=== PATIENT | male | born 1980 | race African-American/Black ===

== ENCOUNTER 2018-11-28 13:30 | Inpatient (IN) | payer BC ==
[~2018-11-28] VITALS: Ht 182.9 cm; Wt 99.7 kg
--- NOTE | ~2018-11-28 | EEG ---
[address] [address] EEG STUDY REPORT Name: MILA DODD Room: [address] IN .R.#: [id number] Admission: 11/28/18 Attend Phys: Andree Romo Discharge: Date of : 76 Report #: [id number] THIS REPORT FOR: //name// CC: RAINE physician/PCP Elías Live This patient is being evaluated for seizure. EEG was done by placing the electrodes by standard 10-20 system of electrode placement. Both referential and sequential montages were used for recording. Background activity in this patient's EEG is about 9 Hz and 30 microvolts. The patient went to sleep that is associated with bilaterally symmetrical sleep spindle and vertex sharp waves. Photic stimulation is unremarkable. Throughout the record, no active epileptiform activity was noticed. IMPRESSION: This patient's EEG is unremarkable and does not demonstrate any active epileptiform activity. By: [id number] Lugo MD /shelby
--- NOTE | ~2018-11-28 | CON ---
[facility] [address] [place] [address] CONSULTATION Name: JUMILAYORK Room: [address] IN M.R.#: [id number] Admission: 11/28/18 Attend Phys: Andree Romo Discharge: Date of : 76 Report #: [id number] THIS REPORT FOR: //name// CC: RANIE physician/PCP Elías Live DATE OF SERVICE: 11/29/2018 HISTORY OF PRESENT ILLNESS: This is a 38-year-old male patient who was evaluated by me for seizure. This patient has a history of severe asthma. He said he got up, he could not think he could breathe. There is some question whether he lost his pulse and he was found to be in SVT and he recovered from that. He was postictal, so it does look like this patient had a typical seizure. The patient never had any seizure before. REVIEW OF SYSTEMS: Indicate he is not complaining of any headache. He never had any seizures before. He has severe asthma. He is being admitted for respiratory difficulty. He does have trouble with anxiety, but rest of the 14-point review of system was carried out. It is mostly unremarkable. PAST MEDICAL HISTORY: Negative for any seizures. FAMILY HISTORY: Negative for seizure. SOCIAL HISTORY: He does not smoke. PHYSICAL EXAMINATION: Indicate he is alert, responsive, oriented. His speech, concentration, fund of knowledge and memory is at his baseline. Cranial nerve examination 2-12 is unremarkable. Strength, sensation, reflexes and tone is symmetrical. There is no meningeal sign. I could not look at the fundus. There is no cerebellar sign. Cardiac examination is unremarkable. He appeared to have stable respiratory system now. He is a very well-developed individual who does not have any dysmorphic features of eyes, ears and face. His blood pressure is 143/56, his pulse rate is 85. His temperature is 98.4. IMPRESSION: This patient appeared to have an induced seizure. It may have been induced because of the patient's respiratory problem or his cardiac problem. Neurological etiology appear unlikely but need to be excluded. RECOMMENDATIONS: 1. EEG. 2. CT scan of the head. 3. If they are okay, we will get a routine MRI, but emphasis should be to evaluate and treat the systemic etiology for [place] [address] CONSULTATION Name: MILA DODD Room: [address] IN .R.#: [id number] Admission: 11/28/18 Attend Phys: Andree Romo Discharge: Date of : 76 Report #: [id number] Thank you very much for this referral. By: [id number] Lugo MD /nt
[~2018-11-28 13:30] MED LIST: ADVAIR 100-501 EACH INH; ALBUTEROL2.5 MG/31 INH; AZITHROMYCIN 2250 MG PO; COMBIVENT INH; FLOVENT HFA 1110 MCG IH; LORAZEPAM 0.50.5 MG PO; MEDROLDOSEPACK PO; PREDNISONE 10 M10 M1 PO; PREDNISONE 20 M20 M1 PO; PREDNISONE 20 M20 MG PO; PROAIR HFA8.5 GM; PROVENTIL HFA6.7 G1 INH; SINGULAIR 10 MG10 M1 PO; TRAMADOL 50 MG50 MG PO
[2018-11-28 13:37] VITALS: BP 142/86
[2018-11-28 13:56] LABS: ABSOLUTE BASOPHILS 0.1 thou/uL (0.0-0.2); ABSOLUTE EOSINOPHILS 0.2 thou/uL (0.0-0.7); ABSOLUTE LYMPHOCYTES 1.4 thou/uL (0.8-5.3); ABSOLUTE MONOCYTES 0.4 thou/uL (0.0-1.2); ABSOLUTE NEUTROPHILS 3.2 thou/uL (1.6-8.1); BASOPHILS 1.4 %; EOSINOPHILS 3.6 %; HEMATOCRIT 43.6 % (42.0-52.0); HEMOGLOBIN 14.9 gm/dL (14.0-18.0); LYMPHOCYTES 25.8 %; MCH 29.7 pg (26.0-34.0); MCHC 34.1 g/dL (28.0-37.0); MCV 87.1 fL (80.0-100.0); MONOCYTES 8.5 %; MPV 8.5 fl. (7.2-11.1); NUCLEATED RBCS 0 /100WBC; PLATELET COUNT* 153 thou/uL (150-400); POLYS 60.7 %; RBC 5.01 mil/uL (4.50-6.00); RDW-CV 14.1 % (10.5-14.5); WBC 5.2 thou/uL (4.0-11.0)
[2018-11-28 14:01] LABS: ANION GAP 8 mmol/L (7-16); BUN 13 mg/dL (7-18); CALCIUM 8.7 mg/dL (8.5-10.1); CHLORIDE 104 mmol/L (98-107); CO2 31 mmol/L (21-32); CREATININE 1.3 mg/dL (0.6-1.3); GLUCOSE 91 mg/dL (70-99); POTASSIUM 3.3 mmol/L (3.5-5.1); SODIUM 143 mmol/L (136-145)
[2018-11-28 14:09] LABS: ALBUMIN 3.9 g/dL (3.4-5.0); ALKALINE PHOSPHATASE 62 U/L (46-116); SGOT 19 U/L (15-37); SGPT 34 U/L (30-65); TOTAL BILIRUBIN 0.3 mg/dL (<0.1-1.0); TOTAL PROTEIN 7.5 g/dL (6.4-8.2); TROPONIN-I LEVEL <0.06 ng/mL (<0.06)
[2018-11-28 16:27] VITALS: BP 111/78
[2018-11-28 16:40] VITALS: BP 136/79
--- NOTE | 2018-11-28 17:38 | NUR ---
PATIENT CAME TO THE FLOOR FROM THE ER IN STABLE CONDITION VIA CART. VITAL SIGNS STABLE ON 3 LITERS OF OXYGEN SATURATION AT 100%. PATIENT IS ANXIOUS AT THIS TIME. ROOM ORIENTATION AND ADMISSION ASSESSMENT DONE, QUESTIONS ANSWERED FOR PATIENT. CALL LIGHT IS IN REACH, WILL CONTINUE TO MONITOR.
[2018-11-29 00:31] VITALS: BP 117/56
[2018-11-29 04:06] LABS: HEMATOCRIT 38.6 % (42.0-52.0); MCH 29.7 pg (26.0-34.0); MCHC 33.8 g/dL (28.0-37.0); MCV 87.9 fL (80.0-100.0); MPV 9.1 fl. (7.2-11.1); NUCLEATED RBCS 0 /100WBC; PLATELET COUNT* 148 thou/uL (150-400); WBC 6.5 thou/uL (4.0-11.0)
[2018-11-29 04:27] LABS: CALCIUM 8.2 mg/dL (8.5-10.1); CREATININE 1.2 mg/dL (0.6-1.3)
[2018-11-29 04:28] LABS: POTASSIUM 4.5 mmol/L (3.5-5.1)
[2018-11-29 05:32] LABS: ABSOLUTE LYMPHOCYTES 0.6 thou/uL (0.8-5.3); ABSOLUTE MONOCYTES 0.1 thou/uL (0.0-1.2); ABSOLUTE NEUTROPHILS 5.8 thou/uL (1.6-8.1)
[2018-11-29 05:33] LABS: LARGE PLATELETS RARE; PLATELET ESTIMATE DECREASED
--- NOTE | 2018-11-29 07:37 | NUR ---
PT SLEPT WELL AFTER MIDNIGHT. RECEIVED IV BOLUS ORDERED, AM LABS DRAWN. RFA SL. ROOM AIR SAT 95%. RT TX GIVEN ORDERED. RECEIVED PO ATIVAN X1 AT HS WITH GOOD RESULT. UP AMBULATING IN [place] AT HS. AOX4, ABLE TO USE CALL LITE AND MAKE NEEDS KNOWN.
[2018-11-29 09:00] VITALS: BP 143/56
--- NOTE | 2018-11-29 12:41 | EKG ---
[place] [address] ELECTROCARDIOGRAM REPORT Name: MILA DODD Room: [address] ADM IN .R.#: [id number] Admission: 11/28/18 Attend Phys: Andree Romo Discharge: Date of : 76 Report #: [id number] THIS REPORT FOR: //name// [facility] ED Test Date: 2018-11-28 Test Time: 13:41:50 Pat Name: MILA DODD Department: Room: [facility] Gender: M Section Hand Helper: Harrison LANDEROS : 1980 Requested By: Efrain Munroe Order Number: [id number] MD: Da Cerda Measurements Intervals [place] Rate: 107 P: 85 FL: 148 QRS: 93 QRSD: 87 T: -2 QT: 317 QTc: 423 Interpretive Statements Sinus tachycardia Borderline right axis deviation ST elev, probable normal early repol pattern No previous ECG available for comparison Electronically Signed On 11-29-2018 12:41:12 FILES SUPERVISOR by Da Cerda [email or web address] <ELECTRONICALLY SIGNED> By: Da Cerda MD, [facility] 11/29/18 1241 1341 40 Da Cerda MD, FAC /EPI
[2018-11-29 15:30] VITALS: BP 140/110
[2018-11-29 15:42] VITALS: BP 139/70
[2018-11-29 16:00] VITALS: BP 122/73
[2018-11-29 16:04] LABS: ABSOLUTE MONOCYTES 0.9 thou/uL (0.0-1.2); ABSOLUTE NEUTROPHILS 15.7 thou/uL (1.6-8.1); BASOPHILS 0.2 %; EOSINOPHILS 0.1 %; HEMATOCRIT 42.6 % (42.0-52.0); HEMOGLOBIN 14.2 gm/dL (14.0-18.0); LYMPHOCYTES 15.2 %; MCHC 33.3 g/dL (28.0-37.0); MCV 90.3 fL (80.0-100.0); MONOCYTES 4.3 %; MPV 9.1 fl. (7.2-11.1); NUCLEATED RBCS 0 /100WBC; PLATELET COUNT* 202 thou/uL (150-400); POLYS 80.2 %; RBC 4.72 mil/uL (4.50-6.00); RDW-CV 13.9 % (10.5-14.5); WBC 19.6 thou/uL (4.0-11.0)
--- NOTE | 2018-11-29 16:15 | NUR ---
1520-PATIENT CALLED FOR RN, UPON ENTERING PATIENT STRUGGLING TO BREATHE SITTING ON SIDE OF BED. ATTEMPTED TO PLACE O2 ON PATIENT PATIENT STARTED TO LEAN BACK ON FOOT OF BED. HAND WASHER CALLED AT 1522. RN CALLED FOR HELP AND PATIENT BEGAN TO HAVE SEIZURE LIKE ACTIVITY. ASSISTED PATIENT ONTO LEFT SIDE AND PATIENT APPEARED TO BE UNRESPONSIVE. PATIENT LOST CONTROL OF BOWEL AND URINE AT THIS. CODE BLUE ACTIVATED. 1525-CODE TEAM ARRIVED. SEE CODE BLUE FLOWSHEET FOR DOCUMENTATION OF VS AND MEDS ADMINISTERED. 1536- PATIENT STARTING TO WAKE UP AT THIS TIME. ABLE TO ANSWER ORIENTATION QUESTIONS. 1553-MANAGER TRANSPORT PLACED AND TRACING ST. PATIENT MORE AWAKE AT THIS TIME. VITALS TAKEN, SEE DOCUMENTATED INTERVENTION. 1615-UPDATED PATIENT'S ON PHONE AND NEW ORDERS. PATIENT TO HAVE CTA OF CHEST COMPLETED. SEIZURE PRECAUTIONS NOW IN PLACE. WILL CONTINUE WITH PLAN OF CARE.
[2018-11-29 16:25] LABS: ALBUMIN 3.8 g/dL (3.4-5.0); ALKALINE PHOSPHATASE 67 U/L (46-116); ANION GAP 18 mmol/L (7-16); BUN 13 mg/dL (7-18); CALCIUM 8.7 mg/dL (8.5-10.1); CHLORIDE 103 mmol/L (98-107); CO2 21 mmol/L (21-32); CREATININE 1.6 mg/dL (0.6-1.3); GLUCOSE 188 mg/dL (70-99); MAGNESIUM 2.2 mg/dL (1.8-2.4); POTASSIUM 3.9 mmol/L (3.5-5.1); SGOT 28 U/L (15-37); SGPT 35 U/L (30-65); SODIUM 142 mmol/L (136-145); TOTAL BILIRUBIN 0.2 mg/dL (<0.1-1.0); TOTAL PROTEIN 7.2 g/dL (6.4-8.2); TROPONIN-I LEVEL <0.06 ng/mL (<0.06)
--- NOTE | 2018-11-29 19:46 | NUR ---
PATIENT HAS BEEN A/O X 4 SINCE HAVING EPISODE THIS AFTERNOON. PATIENT TRACING NSR ON ADMINISTRATIVE AIDE. PATIENT HAS DENIED PAIN, STATES HAVING SOME SORENESS TO CHEST FROM COMPRESSIONS. CTA OF CHEST NEGATIVE. IV RESTARTED THIS SHIFT, NS INFUSING. GIVEN 1ST DOSE OF KEPPRA IV THIS AFTEROON. SEEN BY NEURO THIS SHIFT. UPDATED ON ALL NEW ORDERS AND PLAN OF CARE. SEIZURE PRECAUTIONS IN PLACE. HOULRY ROUNDING COMPLETED. CALL LIGHT WITHIN REACH. WILL CONTINUE WITH PLAN OF CARE.
[2018-11-29 20:30] VITALS: BP 113/67
[2018-11-30 00:17] VITALS: BP 114/75
[2018-11-30 04:34] VITALS: BP 113/46
[2018-11-30 05:19] LABS: HEMATOCRIT 37.2 % (42.0-52.0); HEMOGLOBIN 12.9 gm/dL (14.0-18.0); MCH 30.2 pg (26.0-34.0); MCHC 34.8 g/dL (28.0-37.0); MCV 86.8 fL (80.0-100.0); MPV 8.8 fl. (7.2-11.1); NUCLEATED RBCS 0 /100WBC; PLATELET COUNT* 146 thou/uL (150-400); RBC 4.29 mil/uL (4.50-6.00); WBC 13.3 thou/uL (4.0-11.0)
[2018-11-30 05:29] LABS: CALCIUM 8.7 mg/dL (8.5-10.1); CREATININE 1.2 mg/dL (0.6-1.3); POTASSIUM 4.2 mmol/L (3.5-5.1)
[2018-11-30 06:56] LABS: ABSOLUTE LYMPHOCYTES 0.8 thou/uL (0.8-5.3); ABSOLUTE MONOCYTES 0.8 thou/uL (0.0-1.2); ABSOLUTE NEUTROPHILS 11.7 thou/uL (1.6-8.1)
[2018-11-30 06:57] LABS: PLATELET ESTIMATE ADEQUATE
--- NOTE | 2018-11-30 07:01 | NUR ---
PT SLEPT FAIRLY WELL AFTER MIDNIGHT. NO SEIZURE ACTIVITY OVERNIGHT. TELE SR/ST WITH ACTIVITY. PRN LORAZEPAM GIVEN X1 WITH GOOD RESULT. FRIENDS AT BEDSIDE OVERNIGHT. O2 2L NC. AM LABS DRAWN. NEURO CHECKS WNL, PO KEPPRA AND IV SOLUMEDROL GIVEN ORDERED. SEIZURE PRECAUTIONS IN PLACE. LFA IVF INFUSING PER PUMP. ABLE TO USE CALL LITE AND MAKE NEEDS KNOWN.
[2018-11-30 08:10] VITALS: BP 118/73
--- NOTE | 2018-11-30 12:20 | EKG ---
[place] [address] ELECTROCARDIOGRAM REPORT Name: MILA DODD Room: [address] ADM IN M.R.#: [id number] Admission: 11/28/18 Attend Phys: Andree Romo Discharge: Date of : 76 Report #: [id number] THIS REPORT FOR: //name// [facility] Test Date: 2018-11-29 Test Time: 15:44:06 Pat Name: MILA DODD Department: Room: [address] Gender: M Shucker: BRI : 1980 Requested By: Efrain Munroe Order Number: [id number] Reading MD: Da Cerda Measurements Intervals [place] Rate: 119 P: 68 [place]: 153 QRS: 95 QRSD: 89 T: -68 QT: 334 QTc: 470 Interpretive Statements Sinus tachycardia Borderline right axis deviation Consider left ventricular hypertrophy Abnormal T, consider ischemia, inferior leads Baseline wander in lead(s) V3,V4,V5 Compared to ECG 11/28/2018 13:41:50 T-wave abnormality now present Possible ischemia now present Electronically Signed On 11-30-2018 12:20:20 VEHICLE DYNAMICS ENGINEER by Da Cerda [email or web address] <ELECTRONICALLY SIGNED> By: Da Cerda MD, [facility] 11/30/18 1220 1544 1544 Da Cerda MD, [facility] /EPI
--- NOTE | 2018-11-30 12:21 | EKG ---
[place] [address] ELECTROCARDIOGRAM REPORT Name: MILA DODD Room: [address] ADM IN M.R.#: [id number] Admission: 11/28/18 Attend Phys: Andree Romo Discharge: Date of : 76 Report #: [id number] THIS REPORT FOR: //name// [facility] Test Date: 2018-11-29 Test Time: 15:44:56 Pat Name: MILA DODD Department: Room: [address] Gender: M Ms Sql Server Developer: BRI : 1980 Requested By: Efrain Munroe Order Number: [id number] Razia MD: Da Cerda Measurements Intervals [place] Rate: 118 P: 65 [place]: 150 QRS: 96 QRSD: 88 T: -66 QT: 324 QTc: 455 Interpretive Statements Sinus tachycardia Borderline right axis deviation Repol abnrm suggests ischemia, inferior leads Baseline wander in lead(s) V1,V2 Electronically Signed On 11-30-2018 12:20:57 HAND COLLATOR by Da Cerda [email or web address] <ELECTRONICALLY SIGNED> By: Da Cerda MD, [facility] 11/30/18 1220 1544 1544 Da Cerda MD, [facility] /EPI
[2018-11-30 13:31] VITALS: BP 129/60
[2018-11-30 16:00] VITALS: BP 142/72
--- NOTE | 2018-11-30 19:31 | NUR ---
PATIENT HAS BEEN A/O X 4 THIS SHIFT. CONTINUES ON HELPER COORDINATOR, TRACING NSR. PATIENT UP AD COLETTE IN ROOM. HAS DENIED PAIN OR SHORTNESS OF AIR. IV FLUIDS CONTINUE TO INFUSE. CONTINUES ON IV SOLUMEDROL. NO SEIZURE ACTIVITY THIS SHIFT, REMAINS ON SEIZURE PRECAUTIONS. HAS BEEN AMBULATING IN HALLS THIS SHIFT. FAMILY AND FRIENDS AT BEDSIDE. TO HAVE ECHO IN AM. HOURLY ROUNDING COMPLETED. CALL LIGHT WITHIN REACH. WILL CONTINUE WITH PLAN OF CARE.
[2018-11-30 20:05] VITALS: BP 121/58
--- NOTE | 2018-12-01 05:48 | NUR ---
PATIENT SLEPT FOR MOST OF THE SHIFT, VOICED ANXIETY AROUND 2029 AND WAS GIVEN ATIVAN AND NASAL CANNULA WITH 2L WHILE SLEEPING. BED RAILS UP X2, BED IN LOWEST POSITION, CALL LIGHT WITHIN REACH, WILL CONTINUE TO MONITOR.
--- NOTE | 2018-12-01 06:45 | NUR ---
REVIEWED AND AGREE WITH CHARTING BY ELLIE TINEO
[2018-12-01 08:10] VITALS: BP 131/75
[2018-12-01 12:00] VITALS: BP 135/92
--- NOTE | 2018-12-01 13:10 | NUR ---
SW met with pt and pt to complete initial assessment, introduce self, and SW role. Pt alert, oriented, pleasant. Pt lives at home with his ( in 2005). Pt has a nebulizer and inhalor at home. Pt and pt think that there is a possibility that pt will dc with heart monitor but they are not certain yet. No known dc needs at this time. SW to continue to follow to assist with safe dc planning.
--- NOTE | 2018-12-01 13:31 | 2DMMODE ---
[place] [address] 2 D/M-MODE ECHOCARDIOGRAM Name: MILA DODD Room: [address] IN .R.#: [id number] Admission: 11/28/18 Attend Phys: Elías Live Discharge: Date of : 76 Date of Service: 12/01/18 1330 Report #: [id number] THIS REPORT FOR: //name// APPROVED REPORT Study performed: 12/01/2018 11:17:56 EXAM: Comprehensive 2D, Doppler, and color-flow Echocardiogram Patient Location: Bedside BSA: 2.21 HR: 83 bpm BP: 121/58 mmHg Other Information Study Quality: Good Indications Abnormal ECG 2D Dimensions IVSd: 10.14 (7-11mm) LVOT Diam: 22.29 (18-24mm) LVDd: 56.29 mm PWd: 10.86 (7-11mm) Ascending Ao: 29.97 (22-36mm) LVDs: 34.49 (25-40mm) Aortic Root: 30.87 mm Volumes Left Atrial Volume (Systole) LA ESV Index: 19.50 mL/m2 Aortic Valve AoV Peak Carlos.: 1.21 m/s AO Peak Gr.: 5.83 mmHg LVOT Max P.44 mmHg AO Mean Gr.: 3.16 mmHg LVOT Mean P.92 mmHg LVOT Max V: 1.05 m/s AO V2 VTI: 22.12 cm LVOT Mean V: 0.63 m/s JEFFERY (VTI): 3.47 cm2 LVOT V1 VTI: 19.65 cm Mitral Valve E/A Ratio: 1.70 MV Decel. Time: 215.48 ms MV E Max Carlos.: 0.93 m/s MV PHT: 62.49 ms MVA (PHT): 3.52 cm2 [place] [address] 2 D/M-MODE ECHOCARDIOGRAM Name: MILA DODD Room: [address] IN .R.#: [id number] Admission: 11/28/18 Attend Phys: Elías Live Discharge: Date of : 76 Date of Service: 12/01/18 1330 Report #: [id number] TDI E/Lateral E': 5.17 E/Medial E': 7.15 Medial E' Carlos.: 0.13 m/s Lateral E' Carlos.: 0.18 m/s Pulmonary Valve PV Peak Carlos.: 0.98 m/s PV Peak Gr.: 3.82 mmHg Tricuspid Valve RAP Estimate: 5.00 mmHg TR Peak Gr.: 25.69 mmHg RVSP: 30.69 mmHg PA Pressure: 30.69 mmHg Left Ventricle The left ventricle is normal size. There is normal LV segmental wall motion. There is normal left ventricular wall thickness. Left ventricular systolic function is normal. The left ventricular ejection fraction is within the normal range. LVEF is 60-65%. The left ventricular diastolic function is normal. Right Ventricle The right ventricle is normal size. The right ventricular systolic function is normal. Atria The left atrium size is normal. The right atrium size is normal. Aortic Valve The aortic valve is normal in structure. No aortic regurgitation is present. There is no aortic valvular stenosis. Mitral Valve The mitral valve is normal in structure. There is no mitral valve regurgitation noted. No evidence of mitral valve stenosis. Tricuspid Valve The tricuspid valve is normal in structure. Trace tricuspid regurgitation. Pulmonic Valve The pulmonary valve is normal in structure. There is no pulmonic valvular regurgitation[place] [address] 2 D/M-MODE ECHOCARDIOGRAM Name: JUMILAYORK Room: [address] IN [facility]#: [id number] Admission: 11/28/18 Attend Phys: Elías Live Discharge: Date of : 76 Date of Service: 12/01/18 1330 Report #: [id number] Great Vessels The aortic root is normal in size. IVC is normal in size and collapses >50% with inspiration. Pericardium There is no pericardial effusion. <Conclusion> Left ventricular systolic function is normal. The left ventricular ejection fraction is within the normal range. <ELECTRONICALLY SIGNED> By: Da Cerda MD, FACC 12/01/18 1330 1330 133 Da Cerda MD, FAC /INF
--- NOTE | 2018-12-01 17:22 | NUR ---
PATIENT HAS BEEN A/O X 4 THIS SHIFT. CONTINUES ON CEMENT HANDLER, TRACING SR. PATIENT HAS DENIED PAIN OR SHORTNESS OF AIR. PATIENT HAD ECHO AND MRI COMPLETED THIS SHIFT. IVF SALINE LOCKED. UP AD COLETTE IN ROOM. FAMILY AT BEDSIDE THIS SHIFT. HOURLY ROUNDING COMPLETED. CALL LIGHT WITHIN REACH. WILL CONTINUE WITH PLAN OF CARE.
[2018-12-01 20:00] VITALS: BP 124/77
[2018-12-02 00:39] VITALS: BP 113/62
--- NOTE | 2018-12-02 04:20 | NUR ---
PATIENT ALERT/ORIENTED X4 AND UP AD COLETTE. AT BEDSIDE AT BEGINNING OF SHIFT. PT DENIES PAIN/NAUSEA. PT ON O2 @ 2 LITERS PER NASAL CANNULA AT NIGHT. PT WITH SALINE LOCK IN RT WRIST; PATENT. PT DENIES NEEDS AT THIS TIME. FREQUENTLY USED ITEMS AND CALL LIGHT WITHIN REACH. SIDERAILS UPX2. WILL CONTINUE TO MONITOR.
[2018-12-02 04:21] VITALS: BP 119/69
[2018-12-02 04:36] LABS: HEMATOCRIT 40.8 % (42.0-52.0); HEMOGLOBIN 13.8 gm/dL (14.0-18.0); MCH 29.6 pg (26.0-34.0); MCHC 33.8 g/dL (28.0-37.0); MCV 87.7 fL (80.0-100.0); MPV 9.7 fl. (7.2-11.1); NUCLEATED RBCS 0 /100WBC; PLATELET COUNT* 139 thou/uL (150-400); RBC 4.66 mil/uL (4.50-6.00); RDW-CV 13.5 % (10.5-14.5); WBC 12.4 thou/uL (4.0-11.0)
[2018-12-02 04:43] LABS: CALCIUM 8.9 mg/dL (8.5-10.1); CREATININE 1.2 mg/dL (0.6-1.3); POTASSIUM 4.1 mmol/L (3.5-5.1)
[2018-12-02 07:13] LABS: ABSOLUTE LYMPHOCYTES 0.9 thou/uL (0.8-5.3); ABSOLUTE MONOCYTES 0.2 thou/uL (0.0-1.2); ABSOLUTE NEUTROPHILS 11.3 thou/uL (1.6-8.1); METAMYELOCYTES 5 %; MYELOCYTES 1 %
[2018-12-02 07:14] LABS: PLATELET ESTIMATE DECREASED
[2018-12-02 08:24] VITALS: BP 125/74
[2018-12-02 13:31] VITALS: BP 125/74
[2018-12-02] MEDS ORDERED: CLONAZEPAM 1 MG1 M1 PO (13:31)
[2018-12-02] MEDS ORDERED: KEPPRA 500 MG500 M1 PO (13:32)
[2018-12-02] MEDS ORDERED: PROAIR HFA8.5 GM INH (13:34)
[2018-12-02] MEDS ORDERED: CEFDINIR300 MG PO (13:35)
[2018-12-02] MEDS ORDERED: PREDNISONE 1 MG1 M1 PO (13:37)
[2018-12-02 13:42] VITALS: BP 125/74
[2018-12-02 13:46] VITALS: BP 125/74
--- NOTE | 2018-12-02 14:12 | NUR ---
PT GIVEN DC INSTRUCTIONS AND VERBALIZES UNDERSTANDING. PT GIVEN FOUR SCRIPTS. PT KNOWS TO F/U WITH OPTHOMOLGISTS TOMORROW, NEUROLOGISTS, CARDIOLOGISTS, AND PCP. AT BEDSIDE DURING DC INSTRUCTIONS. NO OTHER CONCERNS AT THIS TIME. CLWR. WCTM.
--- NOTE | 2018-12-03 12:35 | CON ---
[address] [address] CONSULTATION Name: MILA DODD SHEILA Room: [address] IN M.R.#: [id number] Admission: 11/28/18 Attend Phys: Andree Romo Discharge: 12/02/18 Date of : 76 Report #: [id number] THIS REPORT FOR: //name// CC: Liliam Gamboa [facility] physician/PCP Elías Live DATE OF SERVICE: 11/30/2018 HISTORY OF PRESENT ILLNESS: The patient is a 38-year-old black male who I was asked to see in the hospital today after he had an episode of supraventricular tachycardia. The history is obtained from the patient as well as his nurse here in the hospital. He notes for the past years, he had intermittent fluttering in his chest. He also notes it is accompanied by a sharp chest pain. He stays fairly active, playing volleyball. He does have history of asthma. Recently, he has been having increasing shortness of breath. He was admitted here to [facility] 2 days ago with an asthma attack. Last night, he got up to go to the bathroom. He complained of being short of breath. After going to the bathroom, he felt lightheaded. According to the nurses, he then had a seizure. He was placed back in bed. Because of respiratory insufficiency, a code blue was activated. Emergency Room physician was summoned. He apparently had an episode of supraventricular tachycardia and was given adenosine. I was asked to see him for further evaluation and treatment. He denied any biting of his tongue, previous seizures. PAST MEDICAL HISTORY: No surgical procedures. He has no history of hypertension, diabetes. MEDICATIONS: Includes Singulair. He has a nebulizer. ALLERGIES: He has no known drug allergies. FAMILY HISTORY: Negative for heart disease. SOCIAL HISTORY: He is . He and his live here in [place]. 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 Rarely smokes cigarettes, rarely drinks alcohol. REVIEW OF SYSTEMS: He has had no history of stroke, peptic ulcer disease, liver disease, kidney disease, cancer, psychiatric illness, chronic skin condition. PHYSICAL EXAMINATION: GENERAL: Revealed a middle-aged black male, appeared in no distress. VITAL SIGNS: Blood pressure 120/70, pulse is 80. He is afebrile. HEENT: He is anicteric. Conjunctivae pink. Mucous membranes moist. NECK: Veins nondistended. No carotid bruits. Neck supple. CHEST: [place] [address] CONSULTATION Name: MILA DODDFI Room: [address]#: [id number] Admission: 11/28/18 Attend Phys: Andree Romo Discharge: 12/02/18 Date of : 76 Report #: [id number] HEART: Regular rate without murmur. ABDOMEN: Soft. EXTREMITIES: Had no edema. Posterior tibial pulse 2+ bilaterally. SKIN: Warm, dry. NEUROLOGIC: Nonfocal. LYMPH: No adenopathy. MUSCULOSKELETAL: No joint effusion. RADIOLOGICAL DATA: His ECG on admission actually showed a sinus rhythm, right axis. Last night ECG showed a sinus tachycardia. His workup so far, he had a chest x-ray on admission that showed normal heart size, clear lung buckner. LABORATORY DATA: He had sodium 140, creatinine 1.2. Troponin 0.06. White blood cell count 13.3, hemoglobin 12.9. He actually had CT scan of the chest using a PE protocol that showed no pulmonary embolus. IMPRESSION AND RECOMMENDATIONS: 1. Asthma. 2. Seizure. 3. Episode of supraventricular tachycardia. I would not recommend a beta gris because of his asthma. I would consider antiarrhythmic therapy. I would check thyroid function studies and an echocardiogram. <ELECTRONICALLY SIGNED> By: Da Cerda MD, FACC 12/03/18 1235 1131 [email or web address] Cerda MD, FACC /nt
== END 2018-12-02 16:11 | disposition home or self-care (01) | DRG 202 ==
LOC: M.ERS 13:30 → M.TBA-ER 15:23 → M.ERS 15:23 → M.TBA-ER 15:28 → M.3W 15:28
PROVIDERS: Emergency Medicine Emergency Medical Services; Family Medicine; ADMIT Internal Medicine
PROC: 5A12012 Performance of Cardiac Output, Single, Manual (ICD-10-PCS; principal; 2018-11-29)
DX: J45.51 Severe persistent asthma with (acute) exacerbation (principal); I47.1 Supraventricular tachycardia; R56.9 Unspecified convulsions; F41.1 Generalized anxiety disorder; F17.210 Nicotine dependence, cigarettes, uncomplicated; Z91.013 Allergy to seafood; Z23 Encounter for immunization

== ENCOUNTER → 2018-12-22 | Outpatient (CLI) | payer BC ==
[~2018-12-22] MED LIST changes: +CEFDINIR300 MG PO; +CLONAZEPAM 1 MG1 M1 PO; +KEPPRA 500 MG500 M1 PO; +PREDNISONE 1 MG1 M1 PO; +PROAIR HFA8.5 GM INH
--- NOTE | 2018-12-22 15:55 | EXE ---
[place] [address] STRESS ECHOCARDIOGRAM Name: JUMILAYORK Room: [facility]#: [id number] Admission: 12/22/18 Attend Phys: Mei Jasso Discharge: Date of : 76 Date of Service: 12/22/18 1554 Report #: [id number] THIS REPORT FOR: //name// APPROVED REPORT Study performed: 12/22/2018 11:27:56 Exam: Stress Echocardiogram Indication: Chest pain , Dyspnea, SVT Patient Location: Out-Patient Stress Nurse: Ashley Bass RN Supervising Physician: Da Cerda MD Ht: 6 ft 0 in HR: 65 bpm BP: 140/92 mmHg Medical History Cardiac Risk Factors: FHX of CAD, Tobacco History (Former) Procedure The patient underwent an Exercise Stress Test using the Obi Protocol. Blood pressure, heart rate, and EKG were monitored. An Echocardiogram was performed by automotive drivability technician in four stages in quad fashion. At peak stress, four selected images were obtained and placed side by side with resting images for comparison. Stress Test Details Stress Test: Exercise stress testing was performed using a Obi protocol. HR Resting HR: 65 bpm Max Heart Rate (APMHR): 180 bpm Max HR Achieved: 185 bpm Target HR (85% APMHR): 153 bpm % of APMHR: 102 Recovery HR: 110 bpm HR response to stress: Normal HR response to stress BP Resting BP: 140/92 mmHg Max BP: 230/102 mmHg Recovery BP: 155/94 mmHg BP response to stress: Normal blood pressure response to stress. ECG Resting ECG: [place] [address] STRESS ECHOCARDIOGRAM Name: MILA DODD Room: [facility]#: [id number] Admission: 12/22/18 Attend Phys: Mei Jasso Discharge: Date of : 76 Date of Service: 12/22/18 1554 Report #: [id number] Stress ECG: Sinus Tachycardia ST Change: Normal Maximum ST Deviation: 0 mm Arrhythmia: None Recovery ECG: Sinus Rhythm Recovery ST Change: Normal Recovery ST Deviation: 0 mm Recovery Arrhythmia: None Clinical Reason for Termination: Completed protocol Exercise duration: 10 min sec Highest Stage Achieved: Stage 4: 4.2 mph at 16% grade. Exercise capacity: 11.79 METs Pre-Stress Echo The resting Echocardiogram showed normal left ventricular contractility with an estimated Ejection Fraction of about 55-60%. Post-Stress Echo The stress Echocardiogram showed normal left ventricular contractility with an estimated Ejection Fraction of about 65-70%. Conclusion Clinical Response: Non-ischemic Exercise Capacity: Average Stress ECG Response: Non-ischemic Stress Echo Images: Non-ischemic Apical views were suboptimal post stress for interpretation test felt to represent a low risk for future cardiac events Other Information Study Quality: Fair <Conclusion> Apical views were suboptimal post stress for interpretation test felt to represent a low risk for future cardiac events <ELECTRONICALLY SIGNED> By: Da Cerda MD, [facility] 12/22/18 1554 1554 1554 Da Cerda MD, FAC /INF
== END ==
LOC: M.CRD 10:56
DX: R07.9 Chest pain, unspecified (principal); I47.1 Supraventricular tachycardia; J45.909 Unspecified asthma, uncomplicated; F41.9 Anxiety disorder, unspecified; F17.210 Nicotine dependence, cigarettes, uncomplicated; Z80.3 Family history of malignant neoplasm of breast; Z83.3 Family history of diabetes mellitus; Z91.013 Allergy to seafood

== ENCOUNTER 2021-02-05 01:02 | Emergency (ER) | payer BC ==
[~2021-02-05] VITALS: Ht 182.9 cm; Wt 104.3 kg
[2021-02-05] MEDS ORDERED: ALPRAZOLAM XR3 MG PO (01:07)
[2021-02-05 01:27] LABS: ABSOLUTE EOSINOPHILS 0.2 thou/uL (0.0-0.7); ABSOLUTE MONOCYTES 0.8 thou/uL (0.0-1.2); ABSOLUTE NEUTROPHILS 3.2 thou/uL (1.6-8.1); BASOPHILS 0.6 %; EOSINOPHILS 3.8 %; HEMATOCRIT 46.5 % (42.0-52.0); HEMOGLOBIN 15.9 gm/dL (14.0-18.0); LYMPHOCYTES 31.4 %; MCH 29.1 pg (26.0-34.0); MCHC 34.2 g/dL (28.0-37.0); MCV 85.1 fL (80.0-100.0); MONOCYTES 12.9 %; MPV 8.4 fl. (7.2-11.1); NUCLEATED RBCS 0 /100WBC; PLATELET COUNT* 166 thou/uL (150-400); POLYS 51.3 %; RBC 5.47 mil/uL (4.50-6.00); RDW-CV 14.1 % (10.5-14.5); WBC 6.3 thou/uL (4.0-11.0)
[2021-02-05 01:41] LABS: CALCIUM 8.6 mg/dL (8.5-10.1); CREATININE 1.2 mg/dL (0.6-1.3); POTASSIUM 4.1 mmol/L (3.5-5.1)
[2021-02-05 01:46] LABS: ALBUMIN 4.6 g/dL (3.4-5.0); MAGNESIUM 2.2 mg/dL (1.8-2.4); TOTAL BILIRUBIN 0.4 mg/dL (<0.1-1.0); TOTAL PROTEIN 8.6 g/dL (6.4-8.2)
[2021-02-05] MEDS ORDERED: SYMBICORT160 MCG/4. INH (03:19)
[2021-02-05] MEDS ORDERED: PREDNISONE50 MG PO (03:19)
[2021-02-05 03:40] VITALS: BP 112/64
--- NOTE | 2021-02-05 09:55 | EKG ---
[place] [address] ELECTROCARDIOGRAM REPORT Name: MILA DODD Room: [facility]#: [id number] Admission: 02/05/21 Attend Phys: Discharge: 02/05/21 Date of : 76 Date of Service: 02/05/21 0129 Report #: [id number] THIS REPORT FOR: //name// [facility] ED Test Date: 2021-02-05 Test Time: 01:29:55 Pat Name: MILA DODD Department: Room: Gender: Mud Worker: RYAN Villaseñor : 1980 Requested By: Judi Connor Order Number: [id number] MD: Da Cerda Measurements Intervals [place] Rate: 124 P: 82 SC: 147 QRS: 103 QRSD: 86 T: 22 QT: 299 QTc: 430 Interpretive Statements Sinus tachycardia Right axis deviation Abnormal R-wave progression, late transition Compared to ECG 11/29/2018 15:44:56 Possible ischemia no longer present Electronically Signed On 02-05-2021 9:55:28 CDT by Da Cerda [email or web address] <ELECTRONICALLY SIGNED> By: Da Cerda MD, [facility] 02/05/21 0955 0129 0129 Da Cerda MD, [facility] /EPI
== END 2021-02-05 03:40 | disposition home or self-care (01) ==
LOC: M.ERS 01:02
PROVIDERS: Emergency Medicine
DX: J45.901 Unspecified asthma with (acute) exacerbation (principal); Z91.013 Allergy to seafood

== ENCOUNTER → 2021-03-28 | Outpatient (CLI) | payer OTHER ==
[~2021-03-28] MED LIST changes: +ALPRAZOLAM XR3 MG PO; +PREDNISONE50 MG PO; +SYMBICORT160 MCG/4. INH
--- NOTE | 2021-03-28 12:19 | 2DMMODE ---
[place] [address] 2 D/M-MODE ECHOCARDIOGRAM Name: MILA DODD Room: [facility]#: [id number] Admission: 03/28/21 Attend Phys: Dawn Hamilton Discharge: Date of : 76 Date of Service: 03/28/21 1219 Report #: [id number] THIS REPORT FOR: cc: Dawn Hamilton,Sebastian Grant MD [facility] ~ APPROVED REPORT Study performed: 03/28/2021 09:07:41 EXAM: Comprehensive 2D, Doppler, and color-flow Echocardiogram Patient Location: Out-Patient BSA: 2.25 HR: 72 bpm Other Information Study Quality: Good Indications Abnormal ECG 2D Dimensions IVSd: 10.94 (7-11mm) LVOT Diam: 20.91 (18-24mm) LVDd: 47.95 mm PWd: 9.32 (7-11mm) Ascending Ao: 27.16 (22-36mm) LVDs: 31.11 (25-40mm) Aortic Root: 31.36 mm Volumes Left Atrial Volume (Systole) LA ESV Index: 13.70 mL/m2 Aortic Valve AoV Peak Carlos.: 1.33 m/s AO Peak Gr.: 7.03 mmHg LVOT Max P.73 mmHg AO Mean Gr.: 3.62 mmHg LVOT Mean P.03 mmHg LVOT Max V: 1.09 m/s AO V2 VTI: 20.84 cm LVOT Mean V: 0.64 m/s JEFFERY (VTI): 2.86 cm2 LVOT V1 VTI: 17.34 cm Mitral Valve E/A Ratio: 1.19 [place] [address] 2 D/M-MODE ECHOCARDIOGRAM Name: MILA DODD Room: [facility]#: [id number] Admission: 03/28/21 Attend Phys: Dawn Hamilton Discharge: Date of : 76 Date of Service: 03/28/21 1219 Report #: [id number] MV Decel. Time: 188.91 ms MV E Max Carlos.: 0.75 m/s MV PHT: 54.79 ms MVA (PHT): 4.02 cm2 TDI E/Lateral E': 5.77 E/Medial E': 6.82 Medial E' Carlos.: 0.11 m/s Lateral E' Carlos.: 0.13 m/s Pulmonary Valve PV Peak Carlos.: 0.90 m/s PV Peak Gr.: 3.23 mmHg Left Ventricle The left ventricle is normal size. There is normal LV segmental wall motion. There is normal left ventricular wall thickness. Left ventricular systolic function is normal. LVEF is 60-65%. The left ventricular diastolic function is normal. Right Ventricle The right ventricle is normal size. The right ventricular systolic function is normal. Atria The left atrium size is normal. The right atrium size is normal. Aortic Valve The aortic valve is normal in structure. No aortic regurgitation is present. There is no aortic valvular stenosis. Mitral Valve The mitral valve is normal in structure. There is no mitral valve regurgitation noted. No evidence of mitral valve stenosis. Tricuspid Valve The tricuspid valve is normal in structure. There is no tricuspid valve regurgitation noted. Pulmonic Valve The pulmonary valve is normal in structure. There is no pulmonic valvular regurgitation. Great Vessels The aortic root is normal in size. IVC is normal in size and collapses >50% [place] [address] 2 D/M-MODE ECHOCARDIOGRAM Name: MILA DODD Room: [facility]#: [id number] Admission: 03/28/21 Attend Phys: Dawn Hamilton Discharge: Date of : 76 Date of Service: 03/28/21 1219 Report #: [id number] Pericardium There is no pericardial effusion. <Conclusion> The left ventricle is normal size. There is normal left ventricular wall thickness. Left ventricular systolic function is normal. LVEF is 60-65%. The left ventricular diastolic function is normal. There is normal LV segmental wall motion. IVC is normal in size and collapses >50% with inspiration. <ELECTRONICALLY SIGNED> By: Sebastian Garcia MD, FACC 03/28/21 121 121 121 Sebastian Garcia MD, FACC /INF
== END ==
LOC: M.CRD 09:00
PROVIDERS: ATTEND Nurse Practitioner Family
DX: R55 Syncope and collapse (principal); R94.31 Abnormal electrocardiogram [ECG] [EKG]